=== PATIENT | male | born 1955 | race Caucasian/White ===

== ENCOUNTER → 2020-10-01 | Day surgery (SDC) | payer SELFPAY ==
[~2020-10-01] VITALS: Ht 167.6 cm; Wt 86.2 kg
[~2020-10-01] MED LIST: ASCORBIC ACID500 MG PO; ASPIRIN EC81 MG PO; ATENOLOL50 MG PO; CATAPRES0.1 MG PO; CO Q-1050 MG PO; HCTZ25 MG PO; L-ARGININE500 M1 PO; METFORMIN HCL500 M3 PO; NORCO 5-325 TA1 EACH PO; ONDANSETRON ODT8 MG PO; PEPCID AC20 MG PO; PROCTOZONE-HC 230 GM TOP; QUERCETIN DIHYDR1 GM PO; VITAMIN B-121000 MC1 PO; VITAMIN D250 MC1 PO; ZINC50 M2 PO
[2020-10-01 13:42] LABS: HCT 40.7 % (42.0-52.0); HGB 13.9 g/dl (13.2-18.0); MCH 29.7 pg (25.0-31.0); MCHC 34.2 g/dL (32.0-36.0); RBC 4.68 M/uL (4.70-6.00); RDW 13.2 % (11.5-14.0); WBC 9.2 K/uL (4.0-10.5)
[2020-10-01 14:03] LABS: ALBUMIN 3.8 g/dL (3.4-5.0); BILIRUBIN - TOTAL 0.4 mg/dL (0.2-1.0); BUN/CREAT RATIO (CALC) 20.2 RATIO; CREATININE 0.94 mg/dL (0.67-1.17); GLOBULIN (CALCULATION) 3.7 g/dL; POTASSIUM 3.9 mmol/L (3.5-5.1); TOTAL PROTEIN 7.5 g/dL (6.4-8.2)
== END | disposition home or self-care (01) ==
LOC: FAS 11:56
PROVIDERS: Surgery
DX: K62.6 Ulcer of anus and rectum (principal); K62.89 Other specified diseases of anus and rectum; K64.4 Residual hemorrhoidal skin tags; K21.9 Gastro-esophageal reflux disease without esophagitis; E11.9 Type 2 diabetes mellitus without complications; E66.9 Obesity, unspecified; J30.9 Allergic rhinitis, unspecified; M19.90 Unspecified osteoarthritis, unspecified site; I11.0 Hypertensive heart disease with heart failure; I50.9 Heart failure, unspecified; E78.00 Pure hypercholesterolemia, unspecified; E03.9 Hypothyroidism, unspecified; K58.9 Irritable bowel syndrome, unspecified; G47.33 Obstructive sleep apnea (adult) (pediatric); Z79.82 Long term (current) use of aspirin; Z79.84 Long term (current) use of oral hypoglycemic drugs; Z79.899 Other long term (current) drug therapy; Z95.0 Presence of cardiac pacemaker
CPT/HCPCS: 36415; 80053; J1100; J1885; J2250; J2405; J2704; J3010; J7120

== ENCOUNTER → 2020-10-16 | Day surgery (SDC) | payer OTHER, SELFPAY ==
[~2020-10-16] VITALS: Ht 167.6 cm; Wt 86.2 kg
== END | disposition home or self-care (01) ==
LOC: FAS 09:24
DX: K60.2 Anal fissure, unspecified (principal); K58.9 Irritable bowel syndrome, unspecified; K64.8 Other hemorrhoids; I11.0 Hypertensive heart disease with heart failure; I50.9 Heart failure, unspecified; E11.9 Type 2 diabetes mellitus without complications; E78.00 Pure hypercholesterolemia, unspecified; E03.9 Hypothyroidism, unspecified; M19.90 Unspecified osteoarthritis, unspecified site; G47.30 Sleep apnea, unspecified; Z79.84 Long term (current) use of oral hypoglycemic drugs; Z86.16 Personal history of COVID-19; Z79.899 Other long term (current) drug therapy; Z90.49 Acquired absence of other specified parts of digestive tract; Z90.10 Acquired absence of unspecified breast and nipple; Z98.890 Other specified postprocedural states; Z82.49 Family history of ischemic heart disease and other diseases of the circulatory system
CPT/HCPCS: 93005; J2405; J2704; J3010; J7120

== ENCOUNTER 2022-02-11 04:01 | Day surgery (SDCO) | payer MEDICARE ==
[~2022-02-11] VITALS: Ht 167.6 cm; Wt 84.9 kg
[2022-02-11 04:32] LABS: BASOPHIL 0.3 % (0-2); HCT 41.4 % (42.0-52.0); HGB 14.6 g/dl (13.2-18.0); MCH 29.8 pg (25.0-31.0); MCHC 35.3 g/dL (32.0-36.0); MCV 84.5 fL (78.0-100.0); MONOCYTE 11.6 % (0-12); MPV 10.6 fL (6.0-9.5); NEUTROPHIL 42.6 % (41-80); NRBC 0; PLT 209 K/uL (150-400); RDW 12.7 % (11.5-14.0); WBC 8.8 K/uL (4.0-10.5)
[2022-02-11 04:36] LABS: INR 0.85 (0.9-1.2); PROTHROMBIN TIME 11.4 SECONDS (11.9-13.9); PTT 21.8 SECONDS (24.9-34.6)
[2022-02-11 04:44] LABS: CREATININE 1.07 mg/dL (0.67-1.17); POTASSIUM 3.2 mmol/L (3.5-5.1)
[2022-02-11 04:49] LABS: BILIRUBIN - TOTAL 0.3 mg/dL (0.2-1.0); GLOBULIN (CALCULATION) 3.3 g/dL; TOTAL PROTEIN 7.3 g/dL (6.4-8.2)
[2022-02-11] MEDS ORDERED: METFORMIN HCL500 MG PO (12:19)
[2022-02-11] MEDS ORDERED: ZINC CHELATED50 M1 PO (12:23)
[2022-02-11] MEDS ORDERED: METAMUCIL1 DOSE PO (12:26)
[2022-02-12 07:17] LABS: BASOPHIL 0.1 % (0-2); EOSINOPHIL 0.2 % (0-7); HCT 39.1 % (42.0-52.0); HGB 13.2 g/dl (13.2-18.0); LYMPHOCYTE 16.2 % (15-48); MCH 29.4 pg (25.0-31.0); MCHC 33.8 g/dL (32.0-36.0); MCV 87.1 fL (78.0-100.0); MONOCYTE 8.4 % (0-12); MPV 10.2 fL (6.0-9.5); NEUTROPHIL 74.7 % (41-80); NRBC 0; PLT 147 K/uL (150-400); RBC 4.49 M/uL (4.70-6.00); WBC 9.3 K/uL (4.0-10.5)
[2022-02-12 08:04] LABS: ALBUMIN 3.3 g/dL (3.4-5.0); BILIRUBIN - TOTAL 0.7 mg/dL (0.2-1.0); BUN/CREAT RATIO (CALC) 22.1 RATIO; CREATININE 1.04 mg/dL (0.67-1.17); TOTAL PROTEIN 6.3 g/dL (6.4-8.2)
[2022-02-12] MEDS ORDERED: AMOX TR-K CLV1 EAC4 PO (15:33)
[2022-02-12] MEDS ORDERED: ONDANSETRON ODT4 MG PO (15:35)
== END 2022-02-12 16:22 | disposition home or self-care (01) ==
LOC: FER 04:01 → FMS 10:14
PROVIDERS: Emergency Medicine; ADMIT Internal Medicine
DX: K80.12 Calculus of gallbladder with acute and chronic cholecystitis without obstruction (principal); K42.0 Umbilical hernia with obstruction, without gangrene; I11.0 Hypertensive heart disease with heart failure; I50.9 Heart failure, unspecified; E11.9 Type 2 diabetes mellitus without complications; E78.5 Hyperlipidemia, unspecified; K21.9 Gastro-esophageal reflux disease without esophagitis
CPT/HCPCS: 36415; 71045; 74018; 76705; 78226; 80053; 83880; 84484; 85025; 85610; 85730; 93005; 94010; A9537; C9113; G0378; J1170; J1644; J1885; J2250; J2270; J2405; J2543; J2704; J3010; J7030; J7120